=== PATIENT | male | born 1965 | race Caucasian/White ===

== ENCOUNTER 2019-10-20 03:09 | Emergency (ER) | payer OTHER, SELFPAY ==
[2019-10-20] VITALS (8 sets, daily range): BP systolic 108–129; BP diastolic 48–81; PULSE 56–75; RESP 18–22; TEMP 36.6–37.2; O2SAT 98–100; BMI 25.4
[2019-10-20 03:35] LABS: Absolute Lymphocyte Count 2.37 X10^3/uL (0.83-4.51); Absolute Neutrophil Count 8.8 X10^3/uL (2.0-7.7); Basophil# 0.03 X10^3/uL; Basophil% 0.2 % (0-1); Eosinophil# 0.13 X10^3/uL; Eosinophils% 1.1 % (0-5); Hematocrit 22.6 % (40-54); Hemoglobin 6.4 g/dL (13.0-16.5); Lymphocyte # 2.37 X10^3/ul (4.0); Lymphocyte % 19.2 % (19-41); Mean Corp Hgb Conc 28.3 g/dL (32-36); Mean Corpuscular Volume 74.1 fL (80-94); Mean Platelet Vol. 10.8 fl (6.2-12.0); Monocyte# 0.92 X10^3/uL; Monocyte% 7.4 % (0-10); NRBC Flagged by Analyzer 0.3 % (0-5); Neutrophil # 8.77 X10^3/uL (2.7-7.7); Platelet Count 456 K/mm3 (150-450); RBC Distribution Width CV 17.6 % (11.6-14.6); RBC Distribution Width SD 47.2 fl (35.1-43.9); Red Blood Count 3.05 M/mm3 (4.6-6.2); White Blood Count 12.4 K/mm3 (4.4-11.0)
[2019-10-20 03:49] LABS: ALB/GLOB Ratio 1.1 RATIO (0.9-2.4); AST(SGOT) 21 U/L (15-37); Alanine Aminotransfer ALT/SGPT 20 U/L (16-61); Albumin, Serum 3.7 g/dL (3.2-5.0); Alkaline Phosphatase 49 U/L (45-117); Anion Gap 7 (5-15); BUN 14 mg/dL (7-18); BUN/Creat Ratio 10.1 RATIO (10-20); Calcium,Total 8.4 mg/dL (8.5-10.1); Chloride 107 mmol/L (98-107); Creatinine, Serum 1.38 mg/dL (0.70-1.30); EST Glomerular Filtration Rate 57 mL/min (>60); Est Glom Filt Rate - Afr Amer 69 mL/min (>60); Estimated Creatinine Clearance 71.15 ml/min; Globulin 3.3 g/dL (2.2-4.2); Glucose 121 mg/dL (74-106); Potassium 3.7 mmol/L (3.5-5.1); Sodium Level 139 mmol/L (136-145)
--- NOTE | 2019-10-20 04:19 | ED.VISSUMM ---
- ER Visit Summary Date of Service: 10/20/19 Chief Complaint: Abnormal labs History of Present Illness: The patient is a 54 M presenting due to abnormal labs. Patient was seen by his primary care physician this afternoon. He states he had outpatient labs done after the primary care visit. His primary care physician called him at 1 AM and advised him to come to the ED for hemoglobin below 6. Patient states he has felt fatigued. He has had shortness of breath with exertion. He denies dizziness or syncope. Denies chest pain. He states that he had bleeding hemorrhoids for several weeks. He had colonoscopy and banding of hemorrhoids per Dr. Buitrago on October 10. He states since the procedure he has had no further bleeding. Denies bright red blood per rectum or melena. He states he is actually starting to feel improved. Physical Examination: Vitals are stable. Patient is afebrile. Alert no acute distress. HEENT exam pale conjunctive Neck is supple. Lungs are clear and equal bilaterally. Heart is regular rate and rhythm. Abdomen is soft nontender nondistended. Rectal: No bleeding Extremities are unremarkable. Skin is warm and dry. No focal neurologic deficit. Remainder of exam is unremarkable. Emergency Department Course and Treatment: CBC shows hemoglobin 6.4. Chemistries normal except glucose 121, creatinine 1.38. Patient was ordered 2 units of packed red blood cells to be transfused in the ED. He will be observed in the ED for transfusion. Discussed with Dr. Roberson covering for Dr. Buitrago and Dr. Cain covering for Dr. Subramanian. Patient will follow-up in the office. Disposition: Pending Impression: Anemia requiring transfusion This note was generated with [employer] dictation software. It may contain incorrect words, spelling, and punctuation that were not noted in review of the chart prior to signing ED Disposition - Plan for ED Patient: Instructions: ANEMIA, Type Not Specified (Adult) Referrals: Steven Ashley MD [Primary Care Provider] -
--- NOTE | 2019-10-20 04:23 | ED.DEP ---
ED Disposition - Plan for ED Patient: Instructions: ANEMIA, Type Not Specified (Adult) Referrals: Steven Ashley MD [Primary Care Provider] -
--- NOTE | 2019-10-20 06:46 | ED.RN ---
PATIENT DOES NOT HAVE ANY SIGNS OF A BLOOD INFUSION REACTION SO FAR HE HAS GOTTEN HALF A BAG OF BLOOD PRODUCTS. HE DOESN'T HAVE A FEVER, LUNGS ARE CLEAR, NO VISIBLE RASHES AND HIS IV IS PATENT.
--- NOTE | 2019-10-20 07:09 | NURSING ---
dr patrick norman. 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
== END 2019-10-20 10:33 | disposition home or self-care (01) ==
PROVIDERS: Emergency Provider Emergency Medicine; Family Provider Family Medicine; PCP Family Medicine
DX: D64.9 Anemia, unspecified (principal); R06.00 Dyspnea, unspecified
CPT/HCPCS: 36430; 80053; 85025; 86850; 86900; 86901; 86920; 99284; J7030; P9016; A4216

== ENCOUNTER → 2019-10-22 15:11 | Outpatient (CLI) | payer OTHER, SELFPAY ==
[2019-10-20 03:12] VITALS: BMI 25.4
[2019-10-22 17:34] LABS: Hematocrit 27.2 % (40-54); Mean Corp Hgb Conc 29.4 g/dL (32-36); Mean Corpuscular Hgb 22.2 pg (27.0-32.0); Mean Corpuscular Volume 75.6 fL (80-94); Mean Platelet Vol. 11.6 fl (6.2-12.0); Platelet Count 383 K/mm3 (150-450); RBC Distribution Width CV 19.2 % (11.6-14.6); RBC Distribution Width SD 52.1 fl (35.1-43.9); White Blood Count 9.7 K/mm3 (4.4-11.0)
== END ==
PROVIDERS: Family Provider Family Medicine; PCP Family Medicine; Referring Provider Family Medicine; Visit Provider Family Medicine
DX: D50.0 Iron deficiency anemia secondary to blood loss (chronic) (principal)
CPT/HCPCS: 36415; 85027

== ENCOUNTER 2019-11-06 17:09 | Observation (INO) | payer OTHER, SELFPAY ==
[2019-10-20 03:12] VITALS: BMI 25.4
--- NOTE | 2019-11-06 15:39 | PCM.HP.BLA ---
History and Physical Date of Admission: 11/06/19 HISTORY AND PHYSICAL ? Claude Rowell 1965 ? ? REFERRING PHYSICIAN: ??Edmar Ashley MD ? CHIEF COMPLAINT:???Persistent rectal bleeding ? HPI: The patient is a 54 year old male with a complaint of?persistent rectal bleeding. ?The patient notes he has bleeding with every bowel movement. ?He describes the blood as drooping or squirting in the toilet bowl. ?He describes it initially as is red as the sharps container on the wall.??When asked if the blood is mixed within the stool or on the toilet paper he is uncertain. ?He states his stool appears dark likely from the iron supplementation is taking. ? He denies dizziness, syncope, or other symptoms consistent with significant hypovolemia. ? He is concerned that he will require additional transfusion given this persistent blood per rectum. ?He does note mild epigastric discomfort. ?He notes no nausea, no vomiting, no hematemesis or coffee grounds. ? ? He was initially seen by Dr. Kamala Buitrago on October 04, 2019 with a complaint of 10 day history of rectal bleeding. ?He had a colonoscopy in 2008 which was found to have hemorrhoids. ?He noted to Dr. briones that he had dark red blood sometimes bright red and filled the toilet bowl with clots. ?He had banding in the past and felt that was very painful is reluctant to have it done again. ? She performed colonoscopy and hemorrhoidal banding on October 10, 2019. ?Her note demonstrated: ? Findings: ?The perianal and digital rectal examinations were normal. Pertinent ?negatives include normal sphincter tone. ?A few small-mouthed diverticula were found in the sigmoid colon. ?Non-bleeding, slightly inflamed, internal hemorrhoids were found. One ?band was successfully placed at the left lateral position. There was ?no bleeding during the procedure. One band was successfully placed at ?the right anterior position. There was no bleeding during the ?procedure. Impression: ?- Diverticulosis in the sigmoid colon. ?- Non-bleeding slightly inflamed internal ?hemorrhoids. ?- No specimens collected. ? The patient's previous hemoglobin and crit clinic system was from February 28, 2018 which returned as a hemoglobin of 8.9 and iron deficiency parameters. ?The patient was seen by Dr. Ashley?on October 19 for a complaint of fatigue. ?Hemoglobin obtained at that time demonstrated a hemoglobin of 5.6. ?He was referred to [facility] and in the emergency room was transfused 2 units of packed red cells. ?Hemoglobin on October 22, 2019?with a hemoglobin now 8.0. ? The patient called the office yesterday concerned that given the persistent bleeding he would require transfusion again prior to upper endoscopy being performed. ?He states to me that his anus has been sore since colonoscopy and is now only returning towards normal. ? ? Patient is a long-standing history of rectal bleeding and has been seen in the past by Dr. Ethan Roca and ?for hemorrhoidal bleeding.??Going back to 2008 and has been seen in 2008, 2009, 2010 and 2016 for rectal bleeding felt to be of hemorrhoidal origin. ? ? PAST MEDICAL HISTORY PAST MEDICAL HISTORY Diagnosis Date ? External hemorrhoids without mention of complication ? ? Hemorrhage of rectum and anus ? ? ? PAST SURGICAL HISTORY PAST SURGICAL HISTORY Procedure Laterality Date ? COLONOSCOP W/ OR W/O BRS SPEC ? 02/12/09 ? Colonoscopy ? COLONOSCOP W/ OR W/O BRS SPEC ? 10/10/2019 ? Colonoscopy ? ? CURRENT MEDICATIONS Current Outpatient Medications Medication Sig ? Lactulose 10 gram packet Take 1 Packet by mouth once daily. ? No current facility-administered medications for this visit.? ? ALLERGIES:?Patient has no known allergies. ? PERSONAL HISTORY:? SOCIAL HISTORY Social History ? Tobacco Use ? Smoking status: Passive Smoke Exposure - Never Smoker ? Smokeless tobacco: Current User ? ? Types: Chew ? Tobacco comment: 1-2 chews per week Substance Use Topics ? Alcohol use: No ? ? Alcohol/week: 7.5 standard drinks ? ? Types: 3 Cans of Beer (12oz) per week ? Drug use: No ? FAMILY HISTORY:? FAMILY HISTORY FAMILY HISTORY Problem Relation Age of Onset ? Breast Cancer Sister ? ? REVIEW OF SYMPTOMS: ??The review of systems data was entered by the nurse and reviewed by me ? There are no exam notes on file for this visit. ? ? PHYSICAL EXAMINATION: ? General: ?The patient is 54 year old male, well nourished, well hydrated in no acute distress. ?The patient is oriented to time, place, and person. ? VITALS:?Blood pressure 124/64, pulse 94, temperature 36.4 ?C (97.6 ?F), weight 88.9 kg (196 lb), SpO2 94 %. ? HEENT: ?Normal cephalic, ataumatic, pupils are equally round, sclera are anicteric, mucous membranes are moist, oropharynx is clear. ?Neck has no masses, asymmetry or lymphadenopathy. ?Thyroid is unremarkable. ? Respiratory: ?Clear to auscultation and percussion. ?Normal respiratory excursion and pattern. ? Cardiac: ?Examination is regular rate and rhythm. ? Abdominal exam: ?Soft, nontender, ?with no palpable masses. ?No hepatosplenomegaly. ?No palpable hernias. ? Rectal exam:?Normal external anatomy, no significant hemorrhoids or masses. ?Digital rectal exam - normal tone, internal hemorrhoids without other abnormalities.??Minimal stool in vault, no obvious melena or blood on digital.??No complaints of significant pain or palpable fissure on digital rectal exam ? Extremities: ?no clubbing, cyanosis or edema. ?No adenopathy. ? Other: ? ? LABORATORY VALUES: As Noted ? RADIOLOGIC STUDIES: ?As Noted ? Assessment ? IMPRESSION:?Still feel this is likely hemorrhoidal bleeding. ? PLAN:???I discussed with the patient in endoscopy and banding. ?I discussed that I could perform this today. ?He did not seem inclined to undergo anoscopy and banding. ? Will send a stat CBC today. ?If the patient's hemoglobin has decreased significantly then would plan for urgent upper endoscopy. ?Otherwise, I will ask him to return later this week for anoscopy and banding as I feel this is the most likely cause of his persistent hematochezia ? Diagnoses:?(K92.1) Hematochezia ?(primary encounter diagnosis) (K62.5) Rectal bleeding ? My findings have been communicated to ?via shared medical record. ?This note will be forwarded to Dr. Edmar Ashley MD. ? Return to Clinic: The patient is instructed to follow-up with me?based on CBC results. ? This note was partially generated using [employer] voice recognition system, and there may be some incorrect words, spellings, and punctuation that were not noted in checking the note before saving.? Juliano Roberson MD complete blood count returned as a hemoglobin of 6.1. I spoke with the patient. I recommended be admitted to the hospital, transfused 2 units of packed cells, bowel prepped on implant for upper and lower endoscopy in the morning.
[2019-11-06 17:46] VITALS: BMI 24.6; BMI 24.7
[2019-11-06 17:51] VITALS: BP 118/70; PULSE 80; RESP 18; TEMP 37.1; O2SAT 100
[2019-11-06] MEDS: Electrolyte Solution/Peg's 4000 ML PO (18:24)
[2019-11-06 20:12] VITALS: BP 132/65; PULSE 70; RESP 18; TEMP 36.9; O2SAT 100
[2019-11-06 20:50] VITALS: BP 129/74; PULSE 73; RESP 16; TEMP 37.1; O2SAT 99
[2019-11-06 21:42] VITALS: BP 146/65; PULSE 75; RESP 16; TEMP 36.9; O2SAT 100
[2019-11-06 22:39] VITALS: BP 113/59; PULSE 70; RESP 18; TEMP 36.7; O2SAT 100
[2019-11-06 23:32] VITALS: BP 113/55; PULSE 68; RESP 16; TEMP 36.8; O2SAT 99
[2019-11-06] MEDS: 0.9% Saline Lock 10 ML Syringe IV (23:35)
[2019-11-07] VITALS (17 sets, daily range): BP systolic 91–136; BP diastolic 31–81; PULSE 59–787; RESP 16–18; TEMP 36.6–37.6; O2SAT 63–100
[2019-11-07] MEDS: 0.9% Saline Lock 10 ML Syringe IV ×5 (00:18→09:27)
[2019-11-07] MEDS: 0.9% Normal Saline 1,000 ML 60 ML IV ×2 (03:02→09:31)
[2019-11-07 05:30] LABS: Absolute Lymphocyte Count 1.47 X10^3/uL (0.83-4.51); Absolute Neutrophil Count 4.8 X10^3/uL (2.0-7.7); Basophil# 0.02 X10^3/uL; Basophil% 0.3 % (0-1); Eosinophil# 0.08 X10^3/uL; Eosinophils% 1.1 % (0-5); Hematocrit 23.5 % (40-54); Lymphocyte # 1.47 X10^3/ul (4.0); Mean Corp Hgb Conc 29.8 g/dL (32-36); Mean Corpuscular Hgb 22.3 pg (27.0-32.0); Mean Corpuscular Volume 74.8 fL (80-94); Mean Platelet Vol. 10.3 fl (6.2-12.0); Monocyte% 8.6 % (0-10); NRBC Flagged by Analyzer 0 % (0-5); Neutrophil # 4.78 X10^3/uL (2.7-7.7); Neutrophil % 68.4 % (47-70); POSITIVE MORPHOLOGY YES; Platelet Count 345 K/mm3 (150-450); RBC Distribution Width CV 21.4 % (11.6-14.6); RBC Distribution Width SD 57.6 fl (35.1-43.9); Red Blood Count 3.14 M/mm3 (4.6-6.2)
[2019-11-07 05:38] LABS: International Normalized Ratio 1.1; Prothrombin Time (Protime)PT. 14.4 SECONDS (11.7-14.9)
[2019-11-07 05:48] LABS: Differential Indicated SCAN CRITERIA MET
--- NOTE | 2019-11-07 05:59 | NURSING ---
called report to stanley in endo
--- NOTE | 2019-11-07 06:35 | EGD_PTH ---
PATIENT: FLOR ELLIS LOC: MS3 U#:[id number] AGE/SX: 54/M ROOM: MS310 RE11/06/[address]: Dr. Juliano Roberson MD : 1965 BED: 1 DIS: 11/07/2019 SPEC #: [id number] RECD: 11/08/19 08:00 STATUS: OCTAVIO REBernt #: [id number] MADONNA: 11/07/19 06:[address]: Juliano Roberson DEPT: SURGICAL PATHOLOGY RECD BY: Raji Taylor ENTERED: 11/08/19 13:16 SP TYPE: EGD BIOPSY OTHR DR: Dr. Steven Ashley MD Tissues: Gastric mucous membrane Procedures: Surgery Specimen Level IV HEADER OPERATION: Colonoscopy, EGD ([facility] [place]) PRE-OP DIAGNOSIS: GI bleed TISSUE SUBMITTED: Antrum biopsy for histo and H. pylori MICROSCOPIC DIAGNOSIS Gastric antrum, biopsy: Chronic active gastritis. Positive for Helicobacter pylori. See comment. AM:shilpa 11/09/19 COMMENT The results of immunohistochemistry for Helicobacter pylori will be reported separately ([id number]). MICROSCOPIC DESCRIPTION Slides are reviewed. GROSS DESCRIPTION Received in fixative is one container labeled with the patient's name and designated antrum biopsy. The specimen consists of one irregular fragment of light bosch soft tissue that measures 0.5 x 0.3 x 0.1 cm. The specimen is totally submitted in one cassette. / AM:shilpa 11/08/19 TC:2 CPT: 62938
--- NOTE | 2019-11-07 06:35 | IMM_PTH ---
PATIENT: FLOR ELLIS LOC: MS3 U#:[id number] AGE/SX: 54/M ROOM: DE310 RE11/06/[address]: Dr. Juliano Roberson MD : 1965 BED: 1 DIS: 11/07/2019 SPEC #: [id number] RECD: 11/08/19 08:55 STATUS: OCTAVIO REQ #: [id number] MADONNA: 11/07/19 06:[address]: Juliano Roberson DEPT: IMMUNOHISTOCHEMISTRY RECD BY: Daya Duran ENTERED: 11/08/19 08:55 SP TYPE: IMMUNO OTHR DR: Dr. Steven Ashley MD Tissues: Stomach, NOS Procedures: H Pylori (initial) PHYSICIAN & [place] [id number] SPECIMEN INFORMATION: Tissue Source: Antrum biopsy Clinical Info: GI bleed Specimen Number: [id number] CPT code: 61587 METHODOLOGY: Deparaffinized sections of prefer/formalin-fixed tissue or PAP/DQ stained slides are incubated with monoclonal/polyclonal antibodies/oligonucleotide probes. Localization is made via biotin free immunoperoxidase method. Appropriate controls are performed and reacted as expected. Results on target cell population are indicated in the following table: RESULTS: ANTIBODY / CLONE RESULT H Pylori (polyclonal) positive These tests were developed and their performance characteristics determined by [facility]. They may not have been cleared or approved by the U.S. Food and Drug Administration. The FDA has determined that such clearance or approval is not necessary. INTERPRETATION: Antrum biopsy: Positive for Helicobacter pylori organisms. AM:shilpa 11/09/19
--- NOTE | 2019-11-07 07:08 | OP.EGD_ITS ---
Patient Name: Claude Rowell Procedure Date: 11/07/2019 6:02 AM Date of : 1965 Age: 54 Procedure: Upper GI endoscopy Indications: Acute post hemorrhagic anemia Providers: Juliano Roberson MD Medicines: Monitored Anesthesia Care Patient Profile: This is a 54 year old male. Refer to note in patient chart for documentation of history and physical. Complications: No immediate complications. Procedure: Pre-Anesthesia Assessment: - Prior to the procedure, a History and Physical was performed, and patient medications and allergies were reviewed. The patient is competent. The risks and benefits of the procedure and the sedation options and risks were discussed with the patient. All questions were answered and informed consent was obtained. Patient identification and proposed procedure were verified by the physician, the nurse and the anesthesiologist in the procedure room. Mental Status Examination: alert and oriented. Airway Examination: normal oropharyngeal airway and neck mobility. Respiratory Examination: clear to auscultation. CV Examination: normal. Prophylactic Antibiotics: The patient does not require prophylactic antibiotics. Prior Anticoagulants: The patient has taken no previous anticoagulant or antiplatelet agents. ASA Grade Assessment: III - A patient with severe systemic disease. After reviewing the risks and benefits, the patient was deemed in satisfactory condition to undergo the procedure. The anesthesia plan was to use monitored anesthesia care (MAC). Immediately prior to administration of medications, the patient was re-assessed for adequacy to receive sedatives. The heart rate, respiratory rate, oxygen saturations, blood pressure, adequacy of pulmonary ventilation, and response to care were monitored throughout the procedure. The physical status of the patient was re-assessed after the procedure. After obtaining informed consent, the endoscope was passed under direct vision. Throughout the procedure, the patient's blood pressure, pulse, and oxygen saturations were monitored continuously. The gastroscope was introduced through the mouth, and advanced to the jejunum. The upper GI endoscopy was accomplished without difficulty. The patient tolerated the procedure well. Scope In: 6:35:36 AM Scope Out: 6:39:01 AM Total Procedure Duration Time 0 hours 3 minutes 25 seconds Findings: The examined jejunum was normal. Localized mild inflammation characterized by erythema was found in the duodenal bulb. Localized minimal inflammation characterized by erythema was found in the gastric antrum. Biopsies were taken with a cold forceps for histology. The examined esophagus was normal. The gastroesophageal junction was normal. Impression: - Normal examined jejunum. - Duodenitis. - Gastritis. Biopsied. - Normal esophagus. - Normal gastroesophageal junction. Recommendation: - Return patient to hospital bell for ongoing care. - Clear liquid diet. - Return to my office in 1 day. - Continue present medications. Procedure Code(s): --- Professional --- 15008, Esophagogastroduodenoscopy, flexible, transoral; with biopsy, single or multiple CPT copyright 2017 [employer]. All rights reserved. The codes documented in this report are preliminary and upon children's aide review may be revised to meet current compliance requirements. Juliano Roberson MD 11/07/2019 7:07:44 AM This report has been signed electronically. Number of Addenda: 0 Note Initiated On: 11/07/2019 6:02 AM
--- NOTE | 2019-11-07 07:11 | OP.COLON_ITS ---
Patient Name: Claude Rowell Procedure Date: 11/07/2019 6:39 AM Date of : 1965 Age: 54 Procedure: Colonoscopy Indications: Hematochezia Providers: Juliano Roberson MD Medicines: Monitored Anesthesia Care Patient Profile: This is a 54 year old male. Refer to note in patient chart for documentation of history and physical. Last Colonoscopy: within the past month. Complications: No immediate complications. Procedure: Pre-Anesthesia Assessment: - Prior to the procedure, a History and Physical was performed, and patient medications and allergies were reviewed. The patient is competent. The risks and benefits of the procedure and the sedation options and risks were discussed with the patient. All questions were answered and informed consent was obtained. Patient identification and proposed procedure were verified by the physician, the nurse and the anesthesiologist in the procedure room. Mental Status Examination: alert and oriented. Airway Examination: normal oropharyngeal airway and neck mobility. Respiratory Examination: clear to auscultation. CV Examination: normal. Prophylactic Antibiotics: The patient does not require prophylactic antibiotics. Prior Anticoagulants: The patient has taken no previous anticoagulant or antiplatelet agents. ASA Grade Assessment: III - A patient with severe systemic disease. After reviewing the risks and benefits, the patient was deemed in satisfactory condition to undergo the procedure. The anesthesia plan was to use monitored anesthesia care (MAC). Immediately prior to administration of medications, the patient was re-assessed for adequacy to receive sedatives. The heart rate, respiratory rate, oxygen saturations, blood pressure, adequacy of pulmonary ventilation, and response to care were monitored throughout the procedure. The physical status of the patient was re-assessed after the procedure. After I obtained informed consent, the scope was passed under direct vision. Throughout the procedure, the patient's blood pressure, pulse, and oxygen saturations were monitored continuously. The Colonoscope was introduced through the anus and advanced to the cecum, identified by the appendiceal orifice, ileocecal valve and palpation. The colonoscopy was performed without difficulty. The patient tolerated the procedure well. The quality of the bowel preparation was good. Scope In: 6:41:13 AM Scope Withdrawal Time 0 hours 16 minutes 28 seconds Scope Out: 7:03:12 AM Total Procedure Duration Time 0 hours 21 minutes 59 seconds Findings: Hemorrhoids were found on perianal exam. The colon (entire examined portion) appeared normal. A few small-mouthed diverticula were found in the sigmoid colon. Internal hemorrhoids were found during retroflexion. The hemorrhoids were Grade II (internal hemorrhoids that prolapse but reduce spontaneously). Three bands were successfully placed. There was no bleeding at the end of the procedure. Impression: - Hemorrhoids found on perianal exam. - The entire examined colon is normal. - Diverticulosis in the sigmoid colon. - Internal hemorrhoids. Banded. - No specimens collected. Recommendation: - Return patient to hospital bell for ongoing care. - Clear liquid diet. - Continue present medications. - Return to my office in 1 day. - No recommendation at this time regarding repeat colonoscopy. Procedure Code(s): --- Professional --- 58398, Colonoscopy, flexible; with band ligation(s) (eg, hemorrhoids) CPT copyright 2017 [employer]. All rights reserved. The codes documented in this report are preliminary and upon surgical coder review may be revised to meet current compliance requirements. Juliano Roberson MD 11/07/2019 7:11:01 AM This report has been signed electronically. Number of Addenda: 0 Note Initiated On: 11/07/2019 6:39 AM
[2019-11-07 07:36] LABS: Anisocytosis 2+; Differential Comment SCANNED
[2019-11-07] MEDS: Morphine 2 MG/ML Syringe IV ×2 (08:48→09:18)
--- NOTE | 2019-11-07 09:28 | PCM.DC.SUM ---
Discharge Date and Diagnosis Date of Admission: 11/06/19 Date of Discharge: 11/07/19 - Primary Discharge Diagnosis hemorrhoidal bleeding anemia Hospital Course and Treatment Procedures: Colonoscopy, EGD, - - hemorhoidal banding Summary of Care Provided: The patient is a 54 year old M with persistent rectal bleeding. His hemoglobin returned as 6.1. He was admitted, transfused and bowel prepped. He underwent upper and lower endoscopy demonstrating only mixed hemorrhoids as a cause of bleeding. He had 3 bands placed endoscopically - Physical Exam Vitals/I&O's: Vital Signs Temp Pulse Resp BP Pulse Ox 98.5 F 80 18 119/56 L 100 11/07/19 07:53 11/07/19 08:05 11/07/19 07:53 11/07/19 07:53 11/07/19 07:53 Oxygen Delivery Method Room Air Weight: 87.146 kg Body Mass Index (BMI) 24.6 Intake and Output for Last 24 Hours 11/05/19 11/06/19 11/07/19 23:59 23:59 23:59 Intake Total 3200 / 3200 400 / 400 Balance 3200 / 3200 400 / 400 General: Alert, Oriented x3, No apparent distress Neck: Supple, No JVD, Negative Carotid Bruits Cardiovascular: Regular rate, No murmurs Abdomen: Bowel Sounds Present, Soft, Non Tender Laboratory Results 11/06/19 18:02: Blood Type O POSITIVE, Antibody Screen NEGATIVE, Crossmatch See Detail 11/07/19 05:20: WBC 7.0, RBC 3.14 L, Hgb 7.0 L, Hct 23.5 L, MCV 74.8 L, MCH 22.3 L, MCHC 29.8 L, RDW Std Deviation 57.6 H, RDW Coeff of Yair 21.4 H, Plt Count 345, MPV 10.3, Immature Gran % (Auto) 0.600, Neut % (Auto) 68.4, Lymph % (Auto) 21.0, [place] % (Auto) 8.6, Eos % (Auto) 1.1, Baso % (Auto) 0.3, Absolute Neuts (auto) 4.8, Absolute Lymphs (auto) 1.47, Nucleated RBC % 0, Differential Comment SCANNED, Anisocytosis 2+ 11/07/19 05:20: PT 14.4, INR 1.1 Current Medications Dibucaine (Dibucaine) 1 applic TOPICAL 4X/DAY PRN PRN; Protocol PRN Reason: rectal pain Sodium Chloride () 1,000 mls @ 60 mls/hr IV .[id number] JODIE Last Admin: 11/07/19 03:02 Dose: 60 mls/hr Documented by: Morphine Sulfate () 1 - 3 mg IV Q1H PRN PRN PRN Reason: Pain Score 1-10/10 Last Admin: 11/07/19 09:18 Dose: 2 mg Documented by: Morphine Sulfate () 1 - 3 mg IV Q1H PRN PRN PRN Reason: pain 1-10/10 Sodium Chloride () 10 - 40 ml IV UD PRN PRN Reason: SALINE FLUSH Last Admin: 11/07/19 09:27 Dose: 10 ml Documented by: Home Medications: Medications to take at Discharge Dibucaine 1 applic TOPICAL 4X/DAY PRN PRN tube 11/07/19 Primary Care Physician: Steven Ashley MD [Primary Care Provider] - Medical Necessity - Tobacco Use Smoking Status: Never smoker Meaningful Use Info Meaningful Use Diagnoses (Choose all that apply): None applicable
--- NOTE | 2019-11-07 09:32 | DCINST_ITS ---
You will use the following diet at home:: Clear liquid Call your doctor if your incision/area has: Increased Pain/ Swelling Call your doctor if you observe: Fever of 101 or Higher, Inability to urinate Allergies/Adverse Reactions: Allergies No Known Allergies Allergy (Verified 10/20/19 03:10) Medications to take at Discharge Dibucaine 1 applic TOPICAL 4X/DAY PRN PRN tube 11/07/19 Primary Care Physician: Steven Ashley MD [Primary Care Provider] - Test Results: Test results from this visit will be discussed in further detail at your follow- up appointment, if applicable. Please Follow Up With: Juliano Roberson MD When: tomorrrow at 9:00am
[2019-11-07] MEDS: Dibucaine 30 GM Tube 1 APPLIC TOPICAL (10:38)
[2019-11-07 12:44] LABS: Absolute Lymphocyte Count 1.58 X10^3/uL (0.83-4.51); Absolute Neutrophil Count 4.2 X10^3/uL (2.0-7.7); Basophil# 0.02 X10^3/uL; Basophil% 0.3 % (0-1); Eosinophil# 0.08 X10^3/uL; Eosinophils% 1.2 % (0-5); Hematocrit 24.7 % (40-54); Hemoglobin 7.5 g/dL (13.0-16.5); Lymphocyte # 1.58 X10^3/ul (4.0); Lymphocyte % 23.9 % (19-41); Mean Corp Hgb Conc 30.4 g/dL (32-36); Mean Corpuscular Hgb 23.1 pg (27.0-32.0); Mean Platelet Vol. 9.8 fl (6.2-12.0); Monocyte# 0.66 X10^3/uL; NRBC Flagged by Analyzer 0 % (0-5); Neutrophil # 4.22 X10^3/uL (2.7-7.7); Neutrophil % 63.8 % (47-70); POSITIVE MORPHOLOGY YES; Platelet Count 320 K/mm3 (150-450); RBC Distribution Width CV 21.3 % (11.6-14.6); RBC Distribution Width SD 58.5 fl (35.1-43.9); Red Blood Count 3.25 M/mm3 (4.6-6.2); White Blood Count 6.6 K/mm3 (4.4-11.0)
[2019-11-07 12:47] LABS: Differential Indicated SCAN CRITERIA MET
[2019-11-07 12:52] LABS: International Normalized Ratio 1.1; Prothrombin Time (Protime)PT. 13.7 SECONDS (11.7-14.9)
[2019-11-07 13:26] LABS: Anisocytosis 1+; Hypochromasia 2+; Platelet Estimate ADEQUATE (ADEQ); Polychromasia 1+
[2019-11-07 13:27] LABS: Differential Comment SCANNED; Microcytosis 2+
== END 2019-11-07 13:27 | disposition home or self-care (01) ==
PROVIDERS: Anesthesiology; Admitting Provider Surgery; Family Provider Family Medicine; PCP Family Medicine; Visit Provider Surgery
PROC: 0DJD8ZZ Inspection of Lower Intestinal Tract, Via Natural or Artificial Opening Endoscopic (ICD-10-PCS; CPT 45378; principal; 2019-11-07 06:30)
DX: K64.1 Second degree hemorrhoids (principal); K64.4 Residual hemorrhoidal skin tags; D62 Acute posthemorrhagic anemia; F17.220 Nicotine dependence, chewing tobacco, uncomplicated; K57.30 Diverticulosis of large intestine without perforation or abscess without bleeding; K29.50 Unspecified chronic gastritis without bleeding
CPT/HCPCS: 43239; 45398; 36415; 36430; 85025; 85610; 86850; 86900; 86901; 86920; 86922; 88305; 88342; 96374; 96376; 99218; J7030; J7040; P9016; A4216; G0378; G0379